=== PATIENT | male | born 1990 | race Caucasian/White ===

== ENCOUNTER 2023-02-09 02:44 | Emergency (ER) | payer MEDICAID ==
[~2023-02-09] VITALS: Ht 167.6 cm; Wt 80.6 kg
[2023-02-09 02:50] VITALS: PULSE 87
[2023-02-09 02:53] VITALS: BP 127/93; RESP 16; TEMP 98; O2SAT 99
[2023-02-09] MEDS ORDERED: CEFTRIAXONE SODIUM 500 MG/VIAL IM ONE (04:30)
[2023-02-09] MEDS ORDERED: NAPR-1176 MT (04:38)
[2023-02-09] MEDS ORDERED: CEPH500C2 MT (04:38)
== END 2023-02-09 05:36 | disposition home or self-care (01) ==
LOC: ER 02:44
DX: S50.862A Insect bite (nonvenomous) of left forearm, initial encounter (principal); W57.XXXA Bitten or stung by nonvenomous insect and other nonvenomous arthropods, initial encounter; Y93.89 Activity, other specified; Y92.89 Other specified places as the place of occurrence of the external cause; Y99.8 Other external cause status
CPT/HCPCS: 96372; 99283; J0696; Z7610 ×2

== ENCOUNTER 2023-02-16 06:37 | Emergency (ER) | payer MEDICAID ==
[~2023-02-16] VITALS: Ht 167.6 cm; Wt 77.0 kg
[~2023-02-16 06:37] MED LIST: CEPH500C2 MT; NAPR-1176 MT
[2023-02-16 06:46] VITALS: BP 132/86; RESP 16; TEMP 98.2; O2SAT 98
[2023-02-16 06:48] VITALS: PULSE 82
== END 2023-02-16 08:47 | disposition home or self-care (01) ==
LOC: ER 07:02
DX: L02.414 Cutaneous abscess of left upper limb (principal); Z48.00 Encounter for change or removal of nonsurgical wound dressing
CPT/HCPCS: 99281

== ENCOUNTER 2023-02-19 06:19 | Emergency (ER) | payer MEDICAID ==
[~2023-02-19] VITALS: Ht 167.6 cm; Wt 77.0 kg
[2023-02-19 07:02] VITALS: O2SAT 98
[2023-02-19] MEDS ORDERED: BICT1TAB PO (08:23)
[2023-02-19 08:32] VITALS: BP 138/54; PULSE 82; RESP 18; TEMP 98.1
== END 2023-02-19 08:33 | disposition home or self-care (01) ==
LOC: ER 06:19
DX: Z76.0 Encounter for issue of repeat prescription (principal)
CPT/HCPCS: 99283